=== PATIENT | female | born 1965 | race Caucasian/White ===

== ENCOUNTER 2016-11-06 10:32 | Emergency (ER) | payer BC ==
[2016-11-06 11:00] VITALS: BP 101/59
--- NOTE | 2016-11-06 12:09 | UC ---
Respiratory Complaint HPI - HPI Summary HPI Summary: Patient has seasonal allergies. She has been having coughing fits and feels like she has constriction in her throat periodically. denies fever, or other symtpoms. - History of Current Complaint Chief Complaint: UCRespiratory Stated Complaint: WHEEZING Time Seen by Provider: 11/06/16 11:56 Hx Obtained From: Patient Hx Last Menstrual Period: 08/06/13 ?: No Onset/Duration: Sudden Onset, Lasting Days Timing: Constant Severity Initially: Moderate Severity Currently: Moderate Aggravating Factors: Allergens, Deep Breaths Alleviating Factors: Nothing Associated Signs And Symptoms: Positive: Wheezing - Allergies/Home Medications Allergies/Adverse Reactions: Allergies Allergy/AdvReac Type Severity Reaction Status Date / Time Penicillins Allergy Hives Verified 11/06/16 10:53 PMH/Surg Hx/FS Hx/Imm Hx Previously Healthy: Yes - Surgical History Surgical History: Yes Surgery Procedure, Year, and Place: Appendix - Family History Known Family History: Positive: None Negative: Cardiac Disease, Hypertension, Diabetes - Social History Alcohol Use: Occasionally Substance Use Type: None Smoking Status (MU): Never Smoked Tobacco - Immunization History Most Recent Influenza Vaccination: NONE 2016 Most Recent Tetanus Shot: UTD Review of Systems Constitutional: Negative Skin: Negative Eyes: Negative ENT: Negative Respiratory: Shortness Of Breath, Cough Cardiovascular: Negative Gastrointestinal: Negative Genitourinary: Negative Motor: Negative Neurovascular: Negative Musculoskeletal: Negative Neurological: Negative Psychological: Negative All Other Systems Reviewed And Are Negative: Yes Physical Exam Triage Information Reviewed: Yes Appearance: Well-Appearing, Well-Nourished, Pain Distress Vital Signs: Initial Vital Signs Temp 98.4 F 11/06/16 10:55 Pulse 69 11/06/16 10:55 Resp 16 11/06/16 10:55 BP 101/59 11/06/16 10:55 Pulse Ox 100 11/06/16 10:55 Vital Signs Reviewed: Yes Eye Exam: Normal ENT Exam: Normal ENT: Positive: Pharynx normal, TMs normal Dental Exam: Normal Neck exam: Normal Neck: Positive: Supple, Nontender, No Lymphadenopathy Respiratory Exam: Normal Respiratory: Positive: Chest non-tender, Normal breath sounds, Wheezing, Inspiration Cardiovascular Exam: Normal Cardiovascular: Positive: RRR, No Murmur, Pulses Normal Abdominal Exam: Normal Abdomen Description: Positive: Nontender, No Organomegaly, Soft Musculoskeletal Exam: Normal Musculoskeletal: Positive: Strength Intact, ROM Intact, No Edema Neurological Exam: Normal Neurological: Positive: Alert, Muscle Tone Normal Psychological Exam: Normal Skin Exam: Normal UC Diagnostic Evaluation - Laboratory O2 Sat by Pulse Oximetry: 100 Respiratory Course/Dx - Course Course Of Treatment: hx obtained, exam performed ,meds reviewed, treated for bronchospasm - Differential Dx/Diagnosis Differential Diagnosis/HQI/PQRI: Asthma, Bronchitis, Exacerbation Of COPD, Laryngitis, Lower Resp Infection, Sinusitis Provider Diagnoses: broncospasm. seasonal allergies Discharge - Discharge Plan Condition: Stable Disposition: HOME Prescriptions: Albuterol HFA INHALER* [Ventolin HFA Inhaler*] 2 puff INH Q4H PRN #1 mdi PRN Reason: Sob/Wheezing predniSONE TAB* [Deltasone TAB*] 40 mg PO DAILY #14 tab Patient Education Materials: Bronchospasm (ED) Referrals: Non Staff,Doctor [Primary Care Provider] - Additional Instructions: 1. take the medication as prescribed. 2 I would start taking a daily claritin for the seasonal allergies, 3. Increase your fluid intake and get plenty of rest. 4. Follow up with any increase in symtpoms
== END 2016-11-06 12:20 | disposition home or self-care (01) ==
LOC: UCCORT 10:32
DX: J98.01 Acute bronchospasm (principal); J30.2 Other seasonal allergic rhinitis; Z88.0 Allergy status to penicillin
CPT/HCPCS: 99212; G0463

== ENCOUNTER 2017-06-15 20:33 | Emergency (ER) | payer BC ==
[2017-06-15 20:44] VITALS: BP 155/90
--- NOTE | 2017-06-15 21:34 | UC ---
Cardiac HPI - HPI Summary HPI Summary: fleeting episodes of right arm pain and right jaw pain feels like she has been yawning alot is concerned she may have a heart attack---no pain with exertion, no pain or SOB at this time - History of Current Complaint Chief Complaint: UCUpperExtremity Stated Complaint: CHEST PAIN Time Seen by Provider: 06/15/17 21:25 Hx Obtained From: Patient Hx Last Menstrual Period: 08/06/13 Onset/Duration: Gradual Onset, Resolved Timing: Constant Current Severity: None Pain Intensity: 0 Aggravating Factor(s): Other Alleviating Factor(s): Nothing Associated Signs & Symptoms: Positive: Anxiety - Allergy/Home Medications Allergies/Adverse Reactions: Allergies Allergy/AdvReac Type Severity Reaction Status Date / Time Penicillins Allergy Hives Verified 06/15/17 20:44 PMH/Surg Hx/FS Hx/Imm Hx Previously Healthy: No Psychological History: Anxiety - Surgical History Surgical History: Yes Surgery Procedure, Year, and Place: Appendix - Family History Known Family History: Positive: None Negative: Cardiac Disease, Hypertension, Diabetes - Social History Occupation: Employed Full-time Lives: With Family Alcohol Use: None Substance Use Type: None Smoking Status (MU): Never Smoked Tobacco - Immunization History Most Recent Influenza Vaccination: NONE 2016 Most Recent Tetanus Shot: UTD Review of Systems Constitutional: Negative Skin: Negative Eyes: Negative ENT: Dental Pain - right dental pain fleeting episode Respiratory: Other - yawning Cardiovascular: Negative Gastrointestinal: Negative Genitourinary: Negative Motor: Negative Neurovascular: Negative Musculoskeletal: Arthralgia - right arm Neurological: Negative Psychological: Anxious Is Patient Immunocompromised?: No All Other Systems Reviewed And Are Negative: Yes Physical Exam Triage Information Reviewed: Yes Appearance: Well-Appearing, No Pain Distress, Well-Nourished Vital Signs: Initial Vital Signs Temp 97.4 F 06/15/17 20:35 Pulse 70 06/15/17 20:35 Resp 16 06/15/17 20:35 BP 155/90 06/15/17 20:35 Pulse Ox 100 06/15/17 20:35 Vital Signs Reviewed: Yes Eye Exam: Normal Eyes: Positive: Conjunctiva Clear ENT Exam: Normal ENT: Positive: Normal ENT inspection, Hearing grossly normal, Pharynx normal, TMs normal. Negative: Nasal congestion, Nasal drainage, Tonsillar swelling, Tonsillar exudate, Trismus, Muffled voice, Hoarse voice Dental Exam: Normal Neck exam: Normal Neck: Positive: Supple, Nontender, No Lymphadenopathy Respiratory Exam: Normal Respiratory: Positive: Chest non-tender, Lungs clear, Normal breath sounds, No respiratory distress, No accessory muscle use Cardiovascular Exam: Normal Cardiovascular: Positive: RRR, No Murmur, Pulses Normal, Brisk Capillary Refill Musculoskeletal Exam: Normal Musculoskeletal: Positive: Strength Intact, ROM Intact, No Edema Neurological Exam: Normal Neurological: Positive: Alert, Muscle Tone Normal Psychological Exam: Normal Psychological: Positive: Normal Response To Family Skin Exam: Normal Diagnostics - EKG Cardiac Rate: NL Cardiac Rhythm: Sinus: Normal Ectopy: None ST Segment: Normal - Assessment/Plan Course Of Treatment: plan to follow with pcp in am and go to ED should symptoms return (by ems) - Clinical Impression Provider Diagnoses: anxiety, right arm pain Discharge - Discharge Plan Condition: Stable Disposition: HOME Patient Education Materials: Chest Pain (ED) Referrals: Non Staff,Doctor [Medical Doctor] - Additional Instructions: Follow with your doctor in the morning---Should you have return of chest pain or chest pain like symptoms call EMS for evaluation in the hospital
== END 2017-06-15 21:48 | disposition home or self-care (01) ==
LOC: UCCORT 20:33
DX: F41.9 Anxiety disorder, unspecified (principal); M79.601 Pain in right arm; Z88.0 Allergy status to penicillin
CPT/HCPCS: 93005; 99211; G0463